=== PATIENT | female | born 1960 | race Caucasian/White ===

== ENCOUNTER 2016-09-03 07:27 | Day surgery (SDC) | payer BC, OTHER ==
[~2016-09-03] VITALS: Ht 154.9 cm; Wt 74.8 kg
[2016-09-03] MEDS ORDERED: MIDAZOLAM HCL 5 MG/5 ML VIAL ONE (07:43)
[2016-09-03] MEDS ORDERED: MEPERIDINE HCL/PF 100 MG/ML AMP ONE (07:43)
[2016-09-03] MEDS ORDERED: SIMETHICONE 40 MG/0.6 ML ML ONE (07:44)
[2016-09-03 11:11] VITALS: BP 112/52; PULSE 62; RESP 17
[2016-09-03] MEDS ORDERED: ATROPINE SULFATE 1 MG/10 ML SYRINGE IVP ONE (13:00)
== END 2016-09-03 11:00 | disposition home or self-care (01) ==
LOC: SDS 07:27 → SMU 07:28 → SDS 11:00
PROVIDERS: ATTEND Internal Medicine Gastroenterology
DX: D12.3 Benign neoplasm of transverse colon (principal); R19.4 Change in bowel habit; K59.00 Constipation, unspecified; K64.8 Other hemorrhoids; I10 Essential (primary) hypertension
CPT/HCPCS: 45380; 88305; J0461; J2175; J2250; J7030